=== PATIENT | male | born 2000 | race Caucasian/White ===

== ENCOUNTER 2020-12-05 06:23 | Emergency (ER) | payer OTHER ==
[~2020-12-05] VITALS: Ht 167.6 cm; Wt 59.0 kg
[2020-12-05 06:40] LABS: URINE BILIRUBIN NEGATIVE (Negative); URINE BLOOD TRACE (Negative); URINE CLARITY CLEAR; URINE COLOR YELLOW; URINE GLUCOSE-RANDOM NEGATIVE (Negative); URINE KETONES NEGATIVE (Negative); URINE LEUKOCYTES-REFLEX TRACE (Negative); URINE NITRITE-REFLEX NEGATIVE (Negative); URINE PROTEIN NEGATIVE (Negative); URINE UROBILINOGEN 0.2 E.U./dl (0.2-1.0)
[2020-12-05 06:53] LABS: BACTERIA-REFLEX 1-9 Few /HPF (None Seen); CASTS None Seen /LPF (None Seen); CRYSTALS None Seen /LPF (None Seen); MUCUS None Seen strn/LPF (None Seen); SQUAMOUS 0-3 Few /LPF (0-3); URINE RBC 3-10 Few /HPF (0-2); URINE WBC-REFLEX 0-5 Rare /HPF (0-5)
[2020-12-05] MEDS ORDERED: VIBRAMYCIN 100100 MG PO (06:55)
[2020-12-05] MEDS ORDERED: PYRIDIUM200 MG PO (06:56)
[2020-12-05 07:22] VITALS: BP 145/87
== END 2020-12-05 07:23 | disposition home or self-care (01) ==
LOC: M.ERS 06:23
PROVIDERS: Emergency Medicine
DX: N39.0 Urinary tract infection, site not specified (principal); Z20.2 Contact with and (suspected) exposure to infections with a predominantly sexual mode of transmission

== ENCOUNTER 2021-07-28 10:00 | Emergency (ER) | payer OTHER ==
[~2021-07-28 10:00] MED LIST: PYRIDIUM200 MG PO; VIBRAMYCIN 100100 MG PO
== END 2021-07-28 10:14 | disposition left against medical advice (07) ==
LOC: M.ERS 10:00
DX: R51.9 Headache, unspecified (principal); Z20.822 Contact with and (suspected) exposure to COVID-19; Z53.21 Procedure and treatment not carried out due to patient leaving prior to being seen by health care provider

== ENCOUNTER 2021-12-03 20:45 | Emergency (ER) | payer OTHER ==
[2021-12-03 20:54] VITALS: BP 00/00
== END 2021-12-03 20:55 | disposition left against medical advice (07) ==
LOC: M.ERS 20:45
DX: Z20.822 Contact with and (suspected) exposure to COVID-19 (principal); Z53.21 Procedure and treatment not carried out due to patient leaving prior to being seen by health care provider